=== PATIENT | female | born 1990 | race Caucasian/White ===

== ENCOUNTER 2022-04-30 09:27 | Emergency (ER) | payer OTHER, BC ==
[2022-04-30] MEDS ORDERED: Cyclobenzaprine 10 MG TAB ONE (09:54)
== END 2022-04-30 10:35 | disposition home or self-care (01) ==
LOC: NAV ERS 09:27
DX: S39.012A Strain of muscle, fascia and tendon of lower back, initial encounter (principal); W01.10XA Fall on same level from slipping, tripping and stumbling with subsequent striking against unspecified object, initial encounter
CPT/HCPCS: 72100; 72220

== ENCOUNTER 2022-09-20 12:22 | Emergency (ER) | payer BC, OTHER ==
[2022-09-20 13:14] LABS: #Basophils 0.1 thou/uL (0.0-0.2); #Eosinphils 0.1 thou/uL (0.0-0.7); #Lymphocytes 1.9 thou/uL (1.20-3.40); #Monocytes 0.3 thou/uL (0.11-0.59); #Neutrophils 2.9 thou/uL (1.40-6.50); %Basophils 1.1 % (0.0-1.0); %Eosinophils 1.2 % (0.0-10.0); %Lymphocytes 36.5 % (21.0-51.0); %Monocytes 5.9 % (0.0-10.0); %Neutrophils 55.3 % (42.0-75.0); Hemoglobin 12.9 g/dL (12.0-16.0); Mean Corpuscular HGB CONC 31.9 g/dL (32.0-36.0); Mean Corpuscular Hemoglobin 28.1 pg (27.0-31.0); Mean Corpuscular Volume 88.3 fl (78.0-98.0); Mean Platelet Volume 7.5 fL (7.4-10.4); Platelet Count 251 10x3/uL (130-400); Red Blood Cell (RBC) Count 4.58 mill/uL (4.20-5.40); White Blood Cell (WBC) Count 5.3 10x3/uL (4.8-10.8)
[2022-09-20 13:32] LABS: ALT (SGPT) 7 U/L (8-55); AST (SGOT) 9 U/L (5-34); Albumin 4.1 g/dL (3.5-5.0); Alkaline Phosphatase 52 U/L (40-110); Anion Gap 14 mmol/L (10-20); BUN (Urea Nitrogen) 12 mg/dL (7.0-18.7); Bilirubin, Total 0.5 mg/dL (0.2-1.2); Calc. Creatinine Clearance 0 mL/min (70-130); Calcium 8.9 mg/dL (7.8-10.44); Carbon Dioxide 22 mmol/L (22-29); Chloride 107 mmol/L (98-107); Estimated GFR 100; Globulin 2.8 g/dL (2.4-3.5); Glucose 83 mg/dL (70-105); Lipase 20 U/L (8-78); Potassium 3.8 mmol/L (3.5-5.1); Protein, Total 6.9 g/dL (6.0-8.3); Sodium 139 mmol/L (136-145)
[2022-09-20] MEDS ORDERED: Ibuprofen 200 MG TAB ONE (13:56)
[2022-09-20 16:28] LABS: Troponin I Less than 0.010 ng/mL (< 0.028)
== END 2022-09-20 16:44 | disposition home or self-care (01) ==
LOC: NAV ERS 12:22
DX: R07.9 Chest pain, unspecified (principal); M54.50 Low back pain, unspecified; M54.6 Pain in thoracic spine; R06.02 Shortness of breath
CPT/HCPCS: 36415; 71045; 80053; 83690; 84484; 85025; 85379; 93005